=== PATIENT | male | born 1995 | race Caucasian/White ===

== ENCOUNTER 2023-03-20 17:56 | Emergency (ER) | payer BC, SELFPAY ==
[2023-03-20 18:05] VITALS: BP 139/89; PULSE 86; RESP 18; TEMP 36.8; O2SAT 98; BMI 24.3
--- NOTE | 2023-03-20 18:08 | XR_ITS ---
PROCEDURE INFORMATION: Exam: XR Lumbosacral Spine Exam date and time: 03/20/2023 6:18 PM Age: 27 years old Clinical indication: Low back pain; Additional info: Pain from going to lift up his son-- back locked in a semi upright position-- unable to sit down-- had to take xray standing TECHNIQUE: Imaging protocol: Radiologic exam of the lumbosacral spine. Views: 2 or 3 views. COMPARISON: No relevant prior studies available. FINDINGS: Bones/joints: There is preservation of vertebral alignment and vertebral body heights. Facet joints are aligned. No visible acute fracture. Sacroiliac joints are intact. Soft tissues: Unremarkable. IMPRESSION: No acute fracture. No traumatic subluxation.
--- NOTE | 2023-03-20 18:30 | EXP.UTC ---
Discharge Plan Disposition Patient Disposition: Home, Self-Care Condition: Good Prescriptions Prescriptions: New etodolac 200 mg capsule 200 mg PO Q8H PRN (Reason: pain) Qty: 20 0RF cyclobenzaprine 10 mg tablet 10 mg PO TID PRN (Reason: muscle spasm) Qty: 15 0RF methylprednisolone [Medrol (Benito)] 4 mg tablets,dose pack See Rx Instructions .Route .COMPLEX 6 Days Qty: 21 0RF Rx Instructions: taper pack; Referrals Follow up/Referrals: Alexander Bullock MD [Primary Care Provider] - See instructions Activity Restrictions/Add. Instructions Additional Instructions/Restrictions: Make sure to follow up if no improvement or any worsening of symptoms May need to take stool softners to help keep from pushing and straining to have bowel movement Start oral steriods tomorrow *Etodolac carlos 8 hours with meal as needed for pain/inflammation *Remember you had a Toradol shot in the clinic today, which is similar to Motrin and Etodolac wait 8-10 hrs before starting medication *Not additional anti-inflammatory like Ibuprofen, motrin, aleve, advil with the above amount of Etodolac. You can still take Tylenol every 4 hours as needed if you need something else for pain *Ice 20 minutes every 2 hours for the first 48 hours after the initial injury followed by moist heat every 20 minutes 3-4 times a day to affected area *Muscle relaxer every 8 hours as needed for muscle spasms but remember, it WILL cause drowsiness You cannot take it and drive, operate machinery or care for small children. *Keep this area active, no movement leads to more stiffness, However take it easy and avoid heavy lifting pushing or pulling*Follow up with you family doctor if no improvement for further treatment? Clinical Impressions Clinical Impression: Low back pain Qualifiers: Chronicity: acute Back pain laterality: unspecified Sciatica presence: without sciatica Qualified Code(s): M54.50 - Low back pain, unspecified Stand Alone Forms Stand Alone Forms: Work/School Release Instructions Patient Instructions: Low Back Pain, DI for Low Back Pain, Cyclobenzaprine, Etodolac Discharge ED Provider: Maite Renteria [facility] General Stated complaint: Pain spine need injection Mode of Arrival: Ambulatory Source of Information: Patient and Spouse Limitations: No Limitations Time Seen by Provider: 03/20/23 18:15 Description of Symptoms (Recalled from Triage Doc. 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 and felt something tighten up and started having pain States that he went to the Chiropractor and they sent him up here to get an injection to help with pain and inflammation Denies loss of control of bowel or bladder Related Data Previous Rx's Medication Instructions Recorded cyclobenzaprine 10 mg tablet 10 mg PO TID PRN muscle spasm #15 03/20/23 tabs etodolac 200 mg capsule 200 mg PO Q8H PRN pain #20 caps 03/20/23 methylprednisolone 4 mg tablets in See Rx Instructions .Route 03/20/23 a dose pack (Medrol (Benito)) .COMPLEX 6 days #21 tabs Allergies Allergy/AdvReac Type Severity Reaction Status Date / Time No Known Allergies Allergy Verified 03/20/23 18:18 Worker's Comp Is this a Worker's Comp case?: No [facility] Disclaimer: The information contained in this section may have been updated after the patient was seen, as this information can be updated by other users. Social History Smoking Status: Unknown if ever smoked alcohol intake: never current occupati
[2023-03-20 18:53] VITALS: BP 139/89; PULSE 86; RESP 18; TEMP 36.8; O2SAT 98
== END 2023-03-20 19:13 | disposition home or self-care (01) ==
PROVIDERS: Emergency Provider Nurse Practitioner; PCP Internal Medicine Adolescent Medicine
DX: M54.50 Low back pain, unspecified (principal); X50.0XXA Overexertion from strenuous movement or load, initial encounter
CPT/HCPCS: 72100; 96372; 99204; 99212; G0463